=== PATIENT | male | born 1980 | race African-American/Black ===

== ENCOUNTER 2023-12-20 03:37 | Emergency (ER) | payer OTHER ==
[~2023-12-20] VITALS: Ht 180.3 cm; Wt 86.0 kg
[2023-12-20 04:59] VITALS: BP 173/119; PULSE 96; RESP 18; TEMP 98.7; O2SAT 100
[2023-12-20] MEDS ORDERED: AZITHROMYCIN 500 MG TABLET PO ONE (06:30)
[2023-12-20 06:49] LABS: CLARITY URINE CLEAR (CLEAR); COLOR URINE YELLOW (YELLOW); GLUCOSE URINE NEGATIVE (NEGATIVE); KETONES URINE NEGATIVE (NEGATIVE); LEUKOCYTE ESTERASE URINE NEGATIVE (NEGATIVE); NITRITE URINE NEGATIVE (NEGATIVE); OCCULT BLOOD URINE 2+ (NEGATIVE); PH URINE 5.5 (4.5-8.0); PROTEIN URINE 3+ (NEGATIVE); SPECIFIC GRAVITY URINE 1.015 (1.005-1.030); UROBILINOGEN URINE 0.2 E.U./dL (0.2-1.0)
[2023-12-20 07:53] LABS: HYALINE CASTS URINE 0-5 /lpf; SQUAMOUS EPITHELIAL CELL URINE 1+ /lpf (RARE/1+)
[2023-12-20 07:55] LABS: BACTERIA URINE TRACE; RBC URINE 0-2 /hpf (0-2)
[2023-12-20] MEDS ORDERED: DOXY100T2 MT (20:36)
[2023-12-20] MEDS ORDERED: PHEN-815 MT (20:36)
[2023-12-22 13:06] LABS: CHLAMYDIA TRACHOMATIS NAA Negative (Negative); NEISSERIA GONORRHOEAE NAA Negative (Negative)
== END 2023-12-20 06:42 | disposition left against medical advice (07) ==
LOC: ER 03:37
DX: Z20.2 Contact with and (suspected) exposure to infections with a predominantly sexual mode of transmission (principal); Z53.21 Procedure and treatment not carried out due to patient leaving prior to being seen by health care provider
CPT/HCPCS: 81003; 87491; 87591; 99281

== ENCOUNTER 2023-12-20 17:40 | Emergency (ER) | payer OTHER ==
[~2023-12-20] VITALS: Ht 180.3 cm; Wt 86.1 kg
[2023-12-20 17:42] VITALS: BP 171/111; RESP 16; TEMP 98.5; O2SAT 100
[2023-12-20 17:50] VITALS: PULSE 110
[2023-12-20 20:20] LABS: CLARITY URINE CLEAR (CLEAR); COLOR URINE YELLOW (YELLOW); GLUCOSE URINE NEGATIVE (NEGATIVE); KETONES URINE NEGATIVE (NEGATIVE); LEUKOCYTE ESTERASE URINE NEGATIVE (NEGATIVE); NITRITE URINE NEGATIVE (NEGATIVE); OCCULT BLOOD URINE 2+ (NEGATIVE); PH URINE 5.5 (4.5-8.0); PROTEIN URINE 3+ (NEGATIVE); SPECIFIC GRAVITY URINE 1.014 (1.005-1.030); UROBILINOGEN URINE 0.2 E.U./dL (0.2-1.0)
[2023-12-20] MEDS ORDERED: DOXYCYCLINE HYCLATE 100MG CAPSULE PO ONE (20:30)
[2023-12-20] MEDS ORDERED: CEFTRIAXONE SODIUM 500MG VIAL IM ONE (20:30)
[2023-12-20] MEDS ORDERED: DOXY100T2 MT (20:36)
[2023-12-20] MEDS ORDERED: PHEN-815 MT (20:36)
[2023-12-20 20:41] LABS: BACTERIA URINE 1+; SQUAMOUS EPITHELIAL CELL URINE FEW /lpf (RARE/1+)
[2023-12-20 20:42] LABS: WBC URINE 0-2 /hpf (0-2)
[2023-12-20] MEDS ORDERED: DOXYCYCLINE HYCLATE 100MG CAPSULE PO NR (22:00)
[2023-12-20] MEDS ORDERED: CEFTRIAXONE SODIUM 500MG VIAL IM NR (22:00)
== END 2023-12-20 20:45 | disposition home or self-care (01) ==
LOC: ER 17:40
DX: R30.0 Dysuria (principal); Z88.8 Allergy status to other drugs, medicaments and biological substances
CPT/HCPCS: 99283; 81003; J0696

== ENCOUNTER 2025-08-05 22:23 | Inpatient (IN) | payer MEDICARE, MEDICAID ==
[~2025-08-05] VITALS: Ht 185.4 cm; Wt 84.1 kg
[~2025-08-05 22:23] MED LIST: DOXY100T2 MT; PHEN-815 MT
[2025-08-05 22:29] VITALS: O2SAT 100
[2025-08-06] VITALS (16 sets, daily range): BP systolic 121–165; BP diastolic 65–93; PULSE 66–91; RESP 14–20; TEMP 36.5292–37.6; O2SAT 96–99
[2025-08-06 00:02] LABS: BASOPHILS % 1.3 % (0.0-2.0); EOSINOPHILS % 2.4 % (0.0-5.0); HEMATOCRIT. 26.3 % (42.0-52.0); HEMOGLOBIN. 8.5 g/dL (14.0-18.0); LYMPHOCYTES % 15.2 % (20.0-50.0); MEAN PLATELET VOLUME 8.0 fl (7.4-10.4); MONOCYTES % 7.8 % (2.0-8.0); NEUTROPHILS % 73.3 % (40.0-76.0); PLATELET 141 x1000/uL (130-400); RED BLOOD CELL COUNT 2.99 mill/uL (4.7-6.1); RED CELL DISTRIBUTION WIDTH 17.3 % (11.6-14.6)
[2025-08-06 00:18] LABS: INR 0.9
[2025-08-06 00:24] LABS: ASPARTATE AMINOTRANSFERASE 57 IU/L (<34)
[2025-08-06 00:25] LABS: BILIRUBIN DIRECT < 0.1 mg/dL (<=3.0); BILIRUBIN TOTAL 0.2 mg/dL (0.1-1.0); PROTEIN TOTAL 7.2 g/dL (6.0-8.3)
[2025-08-06 00:29] LABS: CREATININE 25.6 mg/dL (0.6-1.3); UREA NITROGEN BLOOD 115 mg/dL (9-23)
[2025-08-06] MEDS: HYDRALAZINE 20MG/ML VIAL IV NR (01:08)
[2025-08-06] MEDS: FUROSEMIDE 100MG/10ML VIAL IVP NR (01:13)
[2025-08-06] MEDS: HYDROCODONE/ACETAMINOPHEN 5/325MG TABLET PO PRN (05:24)
[2025-08-06] MEDS: AMLODIPINE 10MG TABLET PO SCH (08:59)
[2025-08-06] MEDS: SEVELAMER CARBONATE 800 MG TABLET PO SCH (08:59)
[2025-08-06] MEDS: FOLIC ACID/VITAMIN B COMP W-C TABLET PO SCH (08:59)
[2025-08-06 14:47] LABS: CLARITY URINE CLEAR (CLEAR); COLOR URINE YELLOW (YELLOW); GLUCOSE URINE 1+ (NEGATIVE); KETONES URINE NEGATIVE (NEGATIVE); LEUKOCYTE ESTERASE URINE NEGATIVE (NEGATIVE); NITRITE URINE NEGATIVE (NEGATIVE); OCCULT BLOOD URINE 1+ (NEGATIVE); PH URINE 6.0 (4.5-8.0); PROTEIN URINE 3+ (NEGATIVE); SPECIFIC GRAVITY URINE 1.011 (1.005-1.030); UROBILINOGEN URINE 0.2 E.U./dL (0.2-1.0)
[2025-08-06 15:14] LABS: RBC URINE 0-2 /hpf (0-2); SQUAMOUS EPITHELIAL CELL URINE FEW /lpf (RARE/1+); WBC URINE 0-2 /hpf (0-2)
[2025-08-06 15:15] LABS: BACTERIA URINE NONE SEEN
[2025-08-06 15:30] LABS: *AMPHETAMINES SCREEN URINE NEGATIVE (NEGATIVE); *BARBITURATES SCREEN URINE NEGATIVE (NEGATIVE); *BENZODIAZEPINES SCREEN URINE NEGATIVE (NEGATIVE)
[2025-08-06] MEDS ORDERED: NALOXONE HCL 0.4MG/ML VIAL IV PRN (15:30)
[2025-08-06 15:31] LABS: *COCAINE SCREEN URINE NEGATIVE (NEGATIVE); CANNABINOID URINE SCREEN NEGATIVE (NEGATIVE); ECSTASY MDMA SCREEN URINE NEGATIVE (NEGATIVE); METHADONE URINE SCREEN NEGATIVE (NEGATIVE); OPIATES URINE SCREEN NEGATIVE (NEGATIVE); PHENCYCLIDINE URINE SCREEN NEGATIVE (NEGATIVE)
[2025-08-06] MEDS: SODIUM BICARBONATE 8.4% 50MEQ/50ML SYR IV SCH (17:15)
[2025-08-06 18:54] LABS: PHOSPHORUS 9.0 mg/dL (2.5-4.9)
[2025-08-06 19:18] LABS: HEPATITIS A AB IGM NEGATIVE (Negative); HEPATITIS B CORE AB IGM NEGATIVE (Negative)
[2025-08-06 19:40] LABS: HEPATITIS C AB REACTIVE (Pos) (Negative)
[2025-08-06] MEDS: EPOETIN ALFA-EPBX 4,000 UNITS/ML VIAL SUBCUT SCH (20:52)
[2025-08-06] MEDS ORDERED: EPOETIN ALFA-EPBX 4,000 UNITS/ML VIAL SUBCUT SCH (21:00)
[2025-08-07] VITALS: BP 136/76; PULSE 84; RESP 18; TEMP 37.4; O2SAT 100
[2025-08-07 07:58] LABS: BASOPHILS % 1.7 % (0.0-2.0); EOSINOPHILS % 2.4 % (0.0-5.0); HEMATOCRIT. 23.4 % (42.0-52.0); HEMOGLOBIN. 7.7 g/dL (14.0-18.0); LYMPHOCYTES % 12.1 % (20.0-50.0); MEAN PLATELET VOLUME 8.2 fl (7.4-10.4); MONOCYTES % 10.9 % (2.0-8.0); NEUTROPHILS % 72.9 % (40.0-76.0); PLATELET 123 x1000/uL (130-400); RED BLOOD CELL COUNT 2.70 mill/uL (4.7-6.1); RED CELL DISTRIBUTION WIDTH 16.5 % (11.6-14.6)
[2025-08-07 08:00] VITALS: BP 141/74; PULSE 88; RESP 17; TEMP 37.1; O2SAT 100
[2025-08-07 08:33] LABS: UREA NITROGEN BLOOD 77 mg/dL (9-23)
[2025-08-07 08:35] LABS: PHOSPHORUS 6.5 mg/dL (2.5-4.9)
[2025-08-07 09:25] LABS: CREATININE 17.6 mg/dL (0.6-1.3)
[2025-08-07 12:00] VITALS: BP 138/74; PULSE 88; RESP 16; TEMP 37.3; O2SAT 100
[2025-08-07 16:00] VITALS: BP 134/74; PULSE 87; RESP 16; TEMP 37.1; O2SAT 100
[2025-08-07 20:24] VITALS: BP 161/95; PULSE 82; RESP 19; TEMP 36.4; O2SAT 99
[2025-08-08] VITALS (11 sets, daily range): BP systolic 148–176; BP diastolic 82–106; PULSE 76–93; RESP 18; TEMP 36.55848–36.8
[2025-08-08] MEDS ORDERED: SEVE800T8 PO (10:40)
[2025-08-08] MEDS ORDERED: AMLO10TA80 PO (10:40)
== END 2025-08-08 17:49 | disposition home or self-care (01) | DRG 73 ==
LOC: ER 22:23 → 7WST 08-06 00:49 → EDBEDREQ 08-06 01:27 → EDBEDREQDT 08-06 01:27 → EDBEDREQTM 08-06 01:27 → ENRESERV 08-06 02:22
PROVIDERS: ADMIT Internal Medicine; ATTEND Internal Medicine
PROC: 5A1D70Z Performance of Urinary Filtration, Intermittent, Less than 6 Hours Per Day (ICD-10-PCS; principal; 2025-08-06)
PROC: 5A1D70Z Performance of Urinary Filtration, Intermittent, Less than 6 Hours Per Day (ICD-10-PCS; 2025-08-08)
DX: G90.89 Other disorders of autonomic nervous system (principal); N18.6 End stage renal disease; I12.0 Hypertensive chronic kidney disease with stage 5 chronic kidney disease or end stage renal disease; G93.49 Other encephalopathy; E87.20 Acidosis, unspecified; N25.81 Secondary hyperparathyroidism of renal origin; I16.0 Hypertensive urgency; D64.9 Anemia, unspecified; E78.5 Hyperlipidemia, unspecified; Z99.2 Dependence on renal dialysis; Z82.49 Family history of ischemic heart disease and other diseases of the circulatory system; Z87.891 Personal history of nicotine dependence; Z88.0 Allergy status to penicillin; Z91.158 Patient's noncompliance with renal dialysis for other reason
CPT/HCPCS: 36415; 71045; 80048; 80076; 80305; 81003; 83735; 83880; 84100; 85025; 86705; 86709; 87340; 90935; 93005; 96374; 96375; 99285; J0360; J0885; J1938; J3490

== ENCOUNTER 2025-09-17 22:57 | Inpatient (IN) | payer MEDICARE, OTHER, MEDICAID ==
[~2025-09-17] VITALS: Ht 180.3 cm; Wt 81.2 kg
[~2025-09-17 22:57] MED LIST changes: -DOXY100T2 MT; +FOLI0.8T23 MT; -PHEN-815 MT; +SEVE800T8 PO; +TAMS-54 MT
[2025-09-18] VITALS (13 sets, daily range): BP systolic 142–165; BP diastolic 74–104; PULSE 94–109; RESP 16–21; TEMP 35.7508–37; O2SAT 94–100
[2025-09-18 00:23] LABS: BASOPHILS % 2.1 % (0.0-2.0); EOSINOPHILS % 2.8 % (0.0-5.0); HEMATOCRIT. 30.0 % (42.0-52.0); HEMOGLOBIN. 9.3 g/dL (14.0-18.0); LYMPHOCYTES % 12.6 % (20.0-50.0); MEAN PLATELET VOLUME 7.2 fl (7.4-10.4); MONOCYTES % 9.7 % (2.0-8.0); NEUTROPHILS % 72.8 % (40.0-76.0); PLATELET 235 x1000/uL (130-400); RED BLOOD CELL COUNT 3.33 mill/uL (4.7-6.1); RED CELL DISTRIBUTION WIDTH 20.5 % (11.6-14.6)
[2025-09-18 00:44] LABS: UREA NITROGEN BLOOD 36.0 mg/dL (9-23)
[2025-09-18 00:54] LABS: TROPONIN I HIGH SENSITIVITY 101 ng/L (3.0-53)
[2025-09-18 01:12] LABS: CREATININE 8.8 mg/dL (0.6-1.3)
[2025-09-18] MEDS: HYDRALAZINE 20MG/ML VIAL IV ONE (02:02)
[2025-09-18] MEDS: ONDANSETRON HCL 4MG/2ML INJ IV ONE (02:02)
[2025-09-18] MEDS: MORPHINE SULFATE 4 MG/ML INJ (FOR IV/IM USE) IV ONE (02:02)
[2025-09-18] MEDS: NITROGLYCERIN 0.1MG/HR PATCH TOP ONE (02:04)
[2025-09-18] MEDS: ASPIRIN 325MG EC TABLET PO ONE (02:49)
[2025-09-18 03:01] LABS: TROPONIN I HIGH SENSITIVITY 102 ng/L (3.0-53)
[2025-09-18] MEDS ORDERED: ACETAMINOPHEN 325MG TABLET PO PRN ×2 (03:30)
[2025-09-18] MEDS ORDERED: DEXTROSE 50% WATER 50ML SYRINGE IV PRN (03:30)
[2025-09-18] MEDS ORDERED: GUAIFENESIN 200MG/10ML SUGAR FREE UDC PO PRN (03:30)
[2025-09-18] MEDS ORDERED: MAGNESIUM/ALUMINUM HYDROXIDE/SIMETHICONE 30ML UDC PO PRN (03:30)
[2025-09-18] MEDS ORDERED: DOCUSATE SODIUM 100MG CAPSULE PO PRN (03:30)
[2025-09-18] MEDS: IPRATROPIUM/ALBUTEROL 0.5-3(2.5)MG/3ML NEB HHN PRN (04:16)
[2025-09-18] MEDS: SODIUM ZIRCONIUM CYCLOSILICATE 10GM/PACKET PO NR (04:40)
[2025-09-18 05:19] LABS: BG BASE EXCESS 0.1 mmol/L (-2.0-3.0); BG CARBOXYHEMOGLOBIN 1.8 % (0.5-1.5); BG DEOXYHEMOGLOBIN 9.4 % (0.0-5.0); BG FLOW(L/min) 4.00 L/min; BG HCO3 ACT 23.9 mmol/L (21.0-28.0); BG METHEMOGLOBIN 0.3 % (0.5-1.5); BG OXYGEN SATURATION 90.4 % (94.0-98.0); BG OXYHEMOGLOBIN 88.5 % (94.0-98.0); BG PCO2 35.3 mmHg (35.0-48.0); BG PH 7.448 (7.350-7.450); BG PO2 61.2 mmHg (83.0-108.0); BG SAMPLE SITE LEFT RADIAL; BG TOTAL HEMOGLOBIN 10.4 g/dL (13.5-17.5); BG VENT MODE NASAL CANNULA
[2025-09-18 06:35] LABS: PHOSPHORUS 5.8 mg/dL (2.5-4.9)
[2025-09-18] MEDS: SEVELAMER CARBONATE 800 MG TABLET PO SCH (08:55)
[2025-09-18] MEDS: FOLIC ACID/VITAMIN B COMP W-C TABLET PO SCH (08:56)
[2025-09-18] MEDS: TAMSULOSIN HCL 0.4MG SR CAPSULE PO SCH (08:57)
[2025-09-18] MEDS: AMLODIPINE 10MG TABLET PO SCH (08:57)
[2025-09-18] MEDS: ENOXAPARIN 30MG/0.3ML SYR SUBCUT SCH (08:58)
[2025-09-18] MEDS: LOSARTAN 25 MG TABLET PO SCH (08:58)
[2025-09-18] MEDS: FAMOTIDINE 20MG/2ML VIAL IV SCH (09:00)
[2025-09-18] MEDS: FUROSEMIDE 100MG/10ML VIAL IVP SCH (10:28)
[2025-09-18] MEDS ORDERED: DOXYCYCLINE HYCLATE 100 MG/VIAL IV SCH (11:00)
[2025-09-18] MEDS: AZITHROMYCIN 500MG/250ML 250 ML IV SCH (17:11)
[2025-09-18] MEDS: DOXYCYCLINE 100MG/100ML 100 ML IV SCH (19:00)
[2025-09-18] MEDS: KETOROLAC 30MG/ML VIAL IV NR (21:41)
[2025-09-18] MEDS: METOPROLOL TARTRATE 25MG TABLET PO NR (21:42)
[2025-09-19] VITALS (16 sets, daily range): BP systolic 116–159; BP diastolic 76–112; PULSE 85–111; RESP 18–20; TEMP 36.2–36.7; O2SAT 96–98
[2025-09-19] MEDS: MELATONIN 3MG TABLET PO NR (00:13)
[2025-09-19 06:50] LABS: BASOPHILS % 1.3 % (0.0-2.0); EOSINOPHILS % 1.1 % (0.0-5.0); HEMATOCRIT. 30.8 % (42.0-52.0); HEMOGLOBIN. 9.5 g/dL (14.0-18.0); LYMPHOCYTES % 8.6 % (20.0-50.0); MEAN PLATELET VOLUME 7.9 fl (7.4-10.4); MONOCYTES % 8.0 % (2.0-8.0); NEUTROPHILS % 81.0 % (40.0-76.0); PLATELET 231 x1000/uL (130-400); RED BLOOD CELL COUNT 3.43 mill/uL (4.7-6.1); RED CELL DISTRIBUTION WIDTH 20.4 % (11.6-14.6)
[2025-09-19 07:07] LABS: UREA NITROGEN BLOOD 29 mg/dL (9-23)
[2025-09-19 07:09] LABS: PHOSPHORUS 5.8 mg/dL (2.5-4.9)
[2025-09-19 08:29] LABS: CREATININE 7.6 mg/dL (0.6-1.3)
[2025-09-19] MEDS ORDERED: ALBUTEROL (0.5%) 2.5MG/0.5ML NEB HHN ONE (09:30)
[2025-09-19] MEDS ORDERED: INSULIN REGULAR (HUMULIN R) 1000UNITS/10ML VIAL IV ONE (09:30)
[2025-09-19] MEDS: DEXTROSE 50% WATER 50ML SYRINGE IV SCH (10:20)
[2025-09-19] MEDS: INSULIN REGULAR (HUMULIN R) 1000UNITS/10ML VIAL IV SCH (10:20)
[2025-09-19] MEDS: SODIUM BICARBONATE 8.4% 50MEQ/50ML SYR IV SCH (10:20)
[2025-09-19] MEDS: SODIUM ZIRCONIUM CYCLOSILICATE 10GM/PACKET PO SCH (10:20)
[2025-09-19] MEDS: CALCIUM GLUCONATE 100MG/ML 10ML VIAL IV SCH (10:30)
[2025-09-19] MEDS: AZITHROMYCIN 500MG/250ML 250 ML IV SCH (12:09)
[2025-09-19 20:59] LABS: INFLUENZA TYPE A Presumptive Negative (Pres. Neg.); INFLUENZA TYPE B Presumptive Negative (Pres. Neg.)
[2025-09-19 21:00] LABS: RESPIRATORY SYNCYTIAL VIRUS Not Detected (Not Detectd)
[2025-09-20] VITALS (15 sets, daily range): BP systolic 137–161; BP diastolic 66–102; PULSE 85–114; RESP 16–20; TEMP 36.4–37; O2SAT 94–98
[2025-09-20 06:34] LABS: BASOPHILS % 1.9 % (0.0-2.0); EOSINOPHILS % 3.8 % (0.0-5.0); HEMATOCRIT. 30.3 % (42.0-52.0); HEMOGLOBIN. 9.5 g/dL (14.0-18.0); LYMPHOCYTES % 17.8 % (20.0-50.0); MEAN PLATELET VOLUME 7.4 fl (7.4-10.4); MONOCYTES % 9.5 % (2.0-8.0); NEUTROPHILS % 67.0 % (40.0-76.0); PLATELET 254 x1000/uL (130-400); RED BLOOD CELL COUNT 3.41 mill/uL (4.7-6.1); RED CELL DISTRIBUTION WIDTH 19.3 % (11.6-14.6)
[2025-09-20 06:37] LABS: UREA NITROGEN BLOOD 28 mg/dL (9-23)
[2025-09-20 06:39] LABS: CREATININE 7.9 mg/dL (0.6-1.3)
[2025-09-20 06:40] LABS: PHOSPHORUS 5.6 mg/dL (2.5-4.9)
[2025-09-20] MEDS: AZITHROMYCIN 500 MG TABLET PO SCH (09:28)
[2025-09-20] MEDS: LOSARTAN 25 MG TABLET PO SCH (16:59)
[2025-09-21] VITALS (12 sets, daily range): BP systolic 135–166; BP diastolic 70–110; PULSE 78–111; RESP 18–20; TEMP 35.8–36.61404; O2SAT 96–100
[2025-09-21] MEDS: IPRATROPIUM/ALBUTEROL 0.5-3(2.5)MG/3ML NEB HHN PRN (01:29)
[2025-09-21 07:50] LABS: BASOPHILS % 1.9 % (0.0-2.0); EOSINOPHILS % 2.8 % (0.0-5.0); HEMATOCRIT. 27.3 % (42.0-52.0); HEMOGLOBIN. 8.7 g/dL (14.0-18.0); LYMPHOCYTES % 13.7 % (20.0-50.0); MEAN PLATELET VOLUME 7.5 fl (7.4-10.4); MONOCYTES % 10.5 % (2.0-8.0); NEUTROPHILS % 71.1 % (40.0-76.0); PLATELET 275 x1000/uL (130-400); RED BLOOD CELL COUNT 3.07 mill/uL (4.7-6.1); RED CELL DISTRIBUTION WIDTH 19.1 % (11.6-14.6)
[2025-09-21 08:16] LABS: UREA NITROGEN BLOOD 32 mg/dL (9-23)
[2025-09-21 08:19] LABS: PHOSPHORUS 4.7 mg/dL (2.5-4.9)
[2025-09-21 08:40] LABS: CREATININE 8.8 mg/dL (0.6-1.3)
[2025-09-22] VITALS (8 sets, daily range): BP systolic 133–166; BP diastolic 70–105; PULSE 96–105; RESP 18–22; TEMP 36.4–36.8; O2SAT 95–100
[2025-09-22 09:12] LABS: CREATINE KINASE MB FRACTION 2.2 ng/mL (0.5-3.6)
[2025-09-22 09:13] LABS: CREATININE 8.2 mg/dL (0.6-1.3); UREA NITROGEN BLOOD 23.0 mg/dL (9-23)
[2025-09-22 09:14] LABS: BASOPHILS % 2.5 % (0.0-2.0); EOSINOPHILS % 5.0 % (0.0-5.0); HEMATOCRIT. 32.1 % (42.0-52.0); HEMOGLOBIN. 10.0 g/dL (14.0-18.0); LYMPHOCYTES % 18.2 % (20.0-50.0); MEAN PLATELET VOLUME 7.1 fl (7.4-10.4); MONOCYTES % 9.4 % (2.0-8.0); NEUTROPHILS % 64.9 % (40.0-76.0); PLATELET 281 x1000/uL (130-400); RED BLOOD CELL COUNT 3.63 mill/uL (4.7-6.1); RED CELL DISTRIBUTION WIDTH 18.9 % (11.6-14.6)
[2025-09-22 09:47] LABS: HEPATITIS A AB IGM NEGATIVE (Negative); HEPATITIS B CORE AB IGM NEGATIVE (Negative)
[2025-09-22 12:31] LABS: HEPATITIS C AB REACTIVE (Pos) (Negative)
[2025-09-22] MEDS: NITROGLYCERIN 0.4MG TABLET SL SL SCH (22:29)
[2025-09-22] MEDS ORDERED: NITROGLYCERIN 0.4MG TABLET SL SL PRN (22:30)
[2025-09-22] MEDS: MORPHINE SULFATE 4 MG/ML INJ (FOR IV/IM USE) IV SCH (22:55)
[2025-09-23] VITALS (15 sets, daily range): BP systolic 132–147; BP diastolic 52–101; PULSE 90–105; RESP 17–20; TEMP 36.00288–36.8; O2SAT 96–100
[2025-09-23 06:56] LABS: BASOPHILS % 2.0 % (0.0-2.0); EOSINOPHILS % 5.6 % (0.0-5.0); HEMATOCRIT. 34.4 % (42.0-52.0); HEMOGLOBIN. 10.8 g/dL (14.0-18.0); LYMPHOCYTES % 25.3 % (20.0-50.0); MONOCYTES % 10.8 % (2.0-8.0); NEUTROPHILS % 56.3 % (40.0-76.0); RED BLOOD CELL COUNT 3.86 mill/uL (4.7-6.1); RED CELL DISTRIBUTION WIDTH 18.8 % (11.6-14.6)
[2025-09-23 06:56] LABS: UREA NITROGEN BLOOD 33 mg/dL (9-23)
[2025-09-23 06:58] LABS: PHOSPHORUS 6.2 mg/dL (2.5-4.9)
[2025-09-23 07:10] LABS: CREATININE 10.1 mg/dL (0.6-1.3)
[2025-09-23 11:36] LABS: PLATELET 278 x1000/uL (130-400)
[2025-09-23] MEDS: SEVELAMER CARBONATE 800 MG TABLET PO SCH (12:56)
[2025-09-24] VITALS (15 sets, daily range): BP systolic 132–175; BP diastolic 69–102; PULSE 86–108; RESP 10–21; TEMP 36.1–36.9; O2SAT 98–99
[2025-09-24 07:21] LABS: UREA NITROGEN BLOOD 34 mg/dL (9-23)
[2025-09-24 07:23] LABS: PHOSPHORUS 5.6 mg/dL (2.5-4.9)
[2025-09-24 07:27] LABS: BASOPHILS % 2.6 % (0.0-2.0); EOSINOPHILS % 3.8 % (0.0-5.0); HEMATOCRIT. 29.6 % (42.0-52.0); HEMOGLOBIN. 9.5 g/dL (14.0-18.0); LYMPHOCYTES % 16.9 % (20.0-50.0); MEAN PLATELET VOLUME 7.5 fl (7.4-10.4); MONOCYTES % 13.5 % (2.0-8.0); NEUTROPHILS % 63.2 % (40.0-76.0); PLATELET 295 x1000/uL (130-400); RED BLOOD CELL COUNT 3.39 mill/uL (4.7-6.1); RED CELL DISTRIBUTION WIDTH 18.0 % (11.6-14.6)
[2025-09-24 08:56] LABS: CREATININE 9.6 mg/dL (0.6-1.3)
[2025-09-24] MEDS ORDERED: SEVE800T8 PO (12:26)
[2025-09-24] MEDS ORDERED: LOSA50TA41 PO (12:26)
[2025-09-24] MEDS ORDERED: AMLO10TA80 PO (12:26)
[2025-09-24] MEDS ORDERED: TAMS-54 PO (12:26)
[2025-09-24] MEDS: LOSARTAN 50 MG TABLET PO SCH (17:00)
[2025-09-25] VITALS: BP 143/89; PULSE 72; RESP 20; TEMP 36.7; O2SAT 98
[2025-09-25 04:00] VITALS: BP 120/80; PULSE 80; RESP 20; TEMP 36.7; O2SAT 98
[2025-09-25 07:31] VITALS: BP 141/82; PULSE 88; RESP 19; TEMP 98
[2025-09-25 08:00] VITALS: BP 144/102; PULSE 109; RESP 18; TEMP 35.6; O2SAT 98
[2025-09-25 09:43] VITALS: PULSE 109
== END 2025-09-25 10:48 | disposition home or self-care (01) | DRG 871 ==
LOC: ER 23:19 → 5WST 09-18 02:26 → EDBEDREQ 09-18 02:35 → EDBEDREQTM 09-18 02:35 → ENRESERV 09-18 05:44 → 8WST 09-18 06:57
PROVIDERS: ADMIT Internal Medicine; ATTEND Internal Medicine
PROC: 5A1D70Z Performance of Urinary Filtration, Intermittent, Less than 6 Hours Per Day (ICD-10-PCS; principal; 2025-09-18)
PROC: 5A1D70Z Performance of Urinary Filtration, Intermittent, Less than 6 Hours Per Day (ICD-10-PCS; 2025-09-19)
PROC: 5A1D70Z Performance of Urinary Filtration, Intermittent, Less than 6 Hours Per Day (ICD-10-PCS; 2025-09-20)
PROC: 5A1D70Z Performance of Urinary Filtration, Intermittent, Less than 6 Hours Per Day (ICD-10-PCS; 2025-09-21)
PROC: 5A1D70Z Performance of Urinary Filtration, Intermittent, Less than 6 Hours Per Day (ICD-10-PCS; 2025-09-23)
PROC: 5A1D70Z Performance of Urinary Filtration, Intermittent, Less than 6 Hours Per Day (ICD-10-PCS; 2025-09-24)
DX: A41.9 Sepsis, unspecified organism (principal); I21.A1 Myocardial infarction type 2; J96.01 Acute respiratory failure with hypoxia; N18.6 End stage renal disease; I13.2 Hypertensive heart and chronic kidney disease with heart failure and with stage 5 chronic kidney disease, or end stage renal disease; Z99.2 Dependence on renal dialysis; D64.9 Anemia, unspecified; M89.8X9 Other specified disorders of bone, unspecified site; E87.5 Hyperkalemia; F17.200 Nicotine dependence, unspecified, uncomplicated; Z88.0 Allergy status to penicillin
CPT/HCPCS: 36415; 36600; 71045; 80048; 82375; 82550; 82553; 82805; 83735; 83880; 84100; 84145; 84484; 85025; 86705; 86709; 87340; 87420; 87804; 90935; 93005; 93970; 94070; 94640; 94664; 99291; J0360; J0456; J0612; J1308; J1650; J1815; J1885; J1938; J2270; J2405; J3490